=== PATIENT | male | born 1965 | race Caucasian/White ===

== ENCOUNTER 2016-12-01 10:45 | Day surgery (SDC) | payer OTHER ==
[~2016-12-01] VITALS: Ht 167.6 cm; Wt 92.0 kg
[2016-12-01 11:36] LABS: BASOPHILS % 0.4 % (0.0-2.0); EOSINOPHILS # 0.1 10^3/ul (0.0-0.5); EOSINOPHILS % 1.3 % (0.0-7.0); HEMATOCRIT 43.5 % (42.0-52.0); HEMOGLOBIN 14.7 g/dl (14.0-18.0); LYMPHOCYTES # 1.7 10^3/ul (0.8-2.9); LYMPHOCYTES % 23.3 % (15.0-51.0); MEAN CORPUSCULAR HGB CONC 33.9 g/dl (32.0-37.0); MEAN CORPUSCULAR VOLUME 91.3 fl (82.0-101.0); MEAN PLATELET VOLUME 7.5 fl (7.4-10.4); MONOCYTE # 0.4 10^3/ul (0.3-0.9); MONOCYTES % 5.2 % (0.0-11.0); NEUTROPHIL # 5.2 10^3/ul (1.6-7.5); NEUTROPHILS % 69.8 % (39.0-77.0); PLATELET COUNT 307 10^3/UL (140-440); RED BLOOD COUNT 4.76 10^6/ul (4.70-6.10); RED CELL DISTRIBUTION WIDTH 12.4 % (11.5-14.5); UNCORRECTED WBC 7.4 10^3/ul (4.8-10.8); WHITE BLOOD COUNT 7.4 10^3/ul (4.8-10.8)
[2016-12-01 11:37] LABS: CONDITION 1
[2016-12-01 11:47] LABS: INR 0.97; PROTIME 12.9 Sec (12.2-14.2)
[2016-12-01 11:48] LABS: CREATININE 0.77 mg/dl (0.61-1.24); POTASSIUM 4.3 mmol/L (3.5-5.1)
[2016-12-01 11:49] LABS: CALCIUM 9.3 mg/dl (8.4-10.2)
[2016-12-01 11:56] LABS: ADD UMIC YES; URINE BILIRUBIN (Dip) NEGATIVE (NEGATIVE); URINE BLOOD (Dip) TRACE (NEGATIVE); URINE COLOR LT. YELLOW (YELLOW); URINE GLUCOSE (Dip) NEGATIVE (NEGATIVE); URINE KETONES (Dip) NEGATIVE (NEGATIVE); URINE LEUKOCYTE ESTERASE (Dip) NEGATIVE (NEGATIVE); URINE NITRITE (Dip) NEGATIVE (NEGATIVE); URINE TOTAL PROTEIN (Dip) NEGATIVE (NEGATIVE); URINE UROBILINOGEN (Dip) 0.2 E.U./dL (0.1-1.0)
[2016-12-01 12:10] LABS: BACTERIA,URINE FEW; URINE RBCS 0-2 /HPF (0)
[2016-12-01 12:20] VITALS: BP 146/85; PULSE 90; RESP 18; Ht 167.6 cm; Wt 92.0 kg
[2016-12-01 13:04] VITALS: BP 143/74; PULSE 89; RESP 17
[2016-12-01 13:05] LABS: PARTIAL THROMBOPLASTIN TIME 24.5 Sec (25.0-35.0)
[2016-12-01 14:30] VITALS: BP 136/83; PULSE 85; RESP 17
[2016-12-01 15:40] VITALS: BP 132/80; PULSE 75; RESP 19
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
== END 2016-12-01 16:30 | disposition home or self-care (01) ==
LOC: SDS 10:45
PROVIDERS: ATTEND Surgery Vascular Surgery
DX: I77.1 Stricture of artery (principal); M17.11 Unilateral primary osteoarthritis, right knee
CPT/HCPCS: 36247; 75630; 80048; 81001; 85025; 85610; 85730; C1769; C1887; C1894; 81003

== ENCOUNTER 2016-12-11 07:00 | Inpatient (IN) | payer OTHER ==
[~2016-12-11] VITALS: Ht 162.6 cm; Wt 90.7 kg
[2017-01-16 12:11] VITALS: BMI 34.8
[2017-01-17] VITALS (11 sets, daily range): BP systolic 140–161; BP diastolic 79–91; PULSE 71–84; RESP 15–22; Ht 162.6 cm; Wt 90.7 kg
[2017-01-17] MEDS ORDERED: HEPARIN 1000 UNITS/ML 10 ML INJ ONE (07:00)
[2017-01-17] MEDS ORDERED: PAPAVERINE 60 MG INJ ONE (07:00)
[2017-01-17] MEDS ORDERED: GELATIN SIZE 100 SPONGE ONE (07:00)
[2017-01-17] MEDS ORDERED: ETOMIDATE 20 MG INJ ONE (07:00)
[2017-01-17] MEDS ORDERED: POLYMYXIN/BACITRACIN 1L IRRIG ONE (07:01)
[2017-01-17] MEDS ORDERED: THROMBIN 5000 UNIT VIAL ONE (07:01)
--- NOTE | 2017-01-17 07:24 | HPN ---
Date/Time of Note Date/Time of Note DATE: 01/17/17 TIME: 07:24 Interval H&P Admission Note Pt. seen H&P reviewed: No system changes JUDI LOPES MD Jan 17, 2017 07:24
[2017-01-17] MEDS ORDERED: MIDAZOLAM 1 MG/ML 2 ML INJ ONE (07:31)
[2017-01-17] MEDS ORDERED: CEFAZOLIN 1 GM INJ ONE (09:11)
[2017-01-17] MEDS ORDERED: PROPOFOL 20 ML ONE (09:11)
[2017-01-17] MEDS ORDERED: LIDOCAINE 2% (SDV) 5 ML INJ ONE (09:11)
[2017-01-17] MEDS ORDERED: ROCURONIUM 50 MG INJ ONE (09:11)
--- NOTE | 2017-01-17 09:27 | OPPN ---
Date/Time of Note Date/Time of Note DATE: 01/17/17 TIME: 09:24 Operative/Procedure Note Pre-Operative Diagnosis right popliteal artery occlusion Post-Operative Diagnosis same Procedure right posterior tibial artery exploration Surgeon: JUDI LOPES MD Anesthesiologist: CHERRIE MAR MD Findings Upper and mid calf posterior tibial artery unsuitable as a target vessel < 1mm in diameter. I didn't think that bypass would remain patent to this vessel and terminated the bypass procedure. Implants/Grafts: Not applicable Estimated blood loss: minimal Drains: Not applicable Specimens: Not Applicable Complications: None Anesthesia type: general JUDI LOPES MD Jan 17, 2017 09:27
[2017-01-17] MEDS ORDERED: HYDROmorphONE (0.2 MG/ML) 10ML SYG IV PRN ×2 (09:30)
[2017-01-17] MEDS ORDERED: FENTAnyl 50 MCG/ML VIAL IV PRN (09:30)
[2017-01-17] MEDS ORDERED: DIPHENHYDRAMINE 50 MG INJ IV PRN (09:30)
[2017-01-17] MEDS ORDERED: LABETALOL HCL 20MG INJ IV PRN (09:30)
[2017-01-17] MEDS ORDERED: MEPERIDINE 25 MG INJ IV PRN (09:30)
[2017-01-17] MEDS ORDERED: hydrALAzine 20 MG INJ IV PRN (09:30)
[2017-01-17] MEDS ORDERED: ONDANSETRON 4 MG INJ IV PRN (09:30)
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
== END 2017-01-17 16:00 | disposition home or self-care (01) | DRG 254 ==
LOC: EDUNIT# 07:00 → REC 01-17 05:59
PROVIDERS: ADMIT Surgery Vascular Surgery; ATTEND Surgery Vascular Surgery
PROC: 04JY0ZZ Inspection of Lower Artery, Open Approach (ICD-10-PCS; principal; 2017-01-17 07:30)
DX: I77.1 Stricture of artery (principal)
CPT/HCPCS: 86850; 86900; 86901; 86920; J0690; J1644; J2250; J2440; J3010